=== PATIENT | male | born 1980 | race Caucasian/White ===

== ENCOUNTER 2018-11-19 05:08 | Day surgery (SDC) | payer OTHER ==
[~2018-11-19] VITALS: Ht 170.2 cm; Wt 95.3 kg
[2018-11-19 05:53] LABS: HEMOGLOBIN 14.4 g/dL (13.5-17.5); MCH 29.9 pg (26.0-34.0); MCHC 33.5 g/dL (31.0-37.0); MCV 89.2 fL (80.0-100.0); MEAN PLATELET VOLUME 11.1 fL (7.4-10.4); PLATELET COUNT 208 10x3/uL (130-400); RBC 4.82 10x6/uL (4.20-6.10); RDW 13.3 % (11.5-14.5); WBC 8.2 10x3/uL (4.8-10.8)
[2018-11-19 06:39] VITALS: BP 154/86; Ht 170.2 cm; Wt 95.3 kg
[2018-11-19] MEDS ORDERED: OMEPRAZOLE20 M1 PO (07:22)
[2018-11-19] MEDS ORDERED: IBUPROFEN600 MG PO (07:23)
[2018-11-19] MEDS ORDERED: ZOCOR20 MG PO (07:24)
[2018-11-19] MEDS ORDERED: ALPHAGAN P15 ML EACH EYE (07:24)
[2018-11-19 07:37] LABS: BASOPHILS 1 % (0-2); EOSINOPHILS 3 % (0-7); LYMPHOCYTES 31 % (15-50); MONOCYTES 12 % (2-11); NEUTROPHILS 47 % (40-80); PLATELET ESTIMATE NORMAL; ROULEAUX OCC
--- NOTE | 2018-11-19 13:53 | NUR ---
1320-PT. LEFT VIA WHEELCHAIR WITH 2 SKILLED NURSING GUARDS AT SIDE.
--- NOTE | 2018-11-19 18:53 | OP ---
PATIENT NAME: THA HILTON MEDICAL RECORD: [id number] :84 LOCATION:D.OPS ADMISSION DATE: SURGEON: CHRISTIAN PEDERSEN MD DATE OF OPERATION: 11/19/2018 PREOPERATIVE DIAGNOSES: 1. Symptomatic gallstones. 2. Symptomatic ventral hernia. POSTOPERATIVE DIAGNOSES: 1. Symptomatic gallstones. 2. Hepatomegaly. 3. Incarcerated symptomatic ventral hernia. PROCEDURES: 1. Laparoscopic cholecystectomy. 2. Intraoperative cholangiography without immediate surgeon interpretation. 3. An 18-gauge core needle liver biopsies. 4. Incarcerated ventral hernia repair without mesh. SURGEON: Christian Pedersen MD SPECIAL CLIENT BUS DRIVER: None. BLOOD LOSS: Minimal. ANESTHESIA: General. COMPLICATIONS: None. The risks, possible complications, and alternatives to the procedure were explained to the patient. He elects to proceed. The discussion specifically included, but was not limited to, bleeding requiring emergency reoperation, infection, bile duct injury as well as reherniation. OPERATIVE COURSE: The patient was conveyed to the operating room electively on 11/19/2018. General anesthesia was induced by the anesthesia staff. The abdomen was sterilely prepped and draped. An incision was accomplished within the umbilicus. Sharp dissection was carried down to the level of incarcerated fat. This was preperitoneal fat. It was excised with electrocautery. I then sharply cleaned overlying connective tissue from around the hernia defect. A 12-mm trocar was placed through the hernia defect. CO2 insufflation was begun. Once a sufficient pneumoperitoneum had been achieved, a 5-mm trocar was inserted in the left upper quadrant. Another 5-mm trocar was inserted in the epigastrium. Another 5-mm trocar was inserted far laterally in the right upper quadrant. During insertion of all trocars, there appeared to have been no injury to the bowels, any intraperitoneal or retroperitoneal structures. Under laparoscopic guidance, I percutaneously accessed the right upper quadrant utilizing an 18-gauge core needle liver biopsy device. Cores of the liver were obtained over its convexity. The biopsy sites were made hemostatic with the electrocautery. I then grasped the gallbladder. I advanced a cholangiogram trocar. I punctured the fundus of the gallbladder. I aspirated bile. I then injected dye. Under OPERATIVE REPORT [id number] THA HILTON real time fluoroscopy, static fluoroscopic images were obtained. These were cholangiographic images. They are sent to the radiologist for interpretation. Blunt dissection was begun in the triangle of [place]. One cystic artery and one cystic duct were identified. These were clipped multiply and divided between clips. The gallbladder was then excised from its bed in the liver. It was placed within a bag retrieval device and was withdrawn through the umbilical fascial defect. The 12-mm trocar was replaced and the abdomen reinsufflated. There was no bleeding even at low pressure of 8. I irrigated and aspirated. All the trocars were removed and the abdomen desufflated. Utilizing 0 Vicryl suture, I performed a szyt-akdz-pxfta type repair of the umbilical hernia. I then completed the herniorrhaphy with a horizontal mattress 0 Surgidac suture. The umbilical skin was approximated with interrupted 4-0 Vicryl Rapide sutures. The other skin incisions were closed with interrupted intracuticular 3-0 Vicryls. Benzoin and Steri-Strips were applied. The patient was then extubated and conveyed to the post-anesthesia care unit where he was in stable condition. He will be dismissed back to the shelter with [place] for pain. He is not to do any lifting or straining for 3 weeks. There is no need for him to follow up with me in the office unless he develops a complication related to this operative procedure. TRANSINT:[id number] Voice Confirmation ID: [id number] DOCUMENT ID: [id number] CC: Marbella Chow APN, not found. CHRISTIAN PEDERSEN MD at 1853 CC: DL ALMAZAN MD, CHRISTIAN ADAMS MD, LANIE VILLARREAL MD and [id number] L DICTATION DATE: 11/19/18 1105 PROCESSING INSPECTOR: 11/19/18 1117 [facility] 11/19/[address] [facility] [address] [place] [address]
--- NOTE | 2018-12-18 18:02 | HP ---
PATIENT: THA HILTNO MEDICAL RECORD: [id number] ACCOUNT: [id number] LOCATION:[facility] : 84 ADMISSION DATE: 11/19/18 PCP: No PCP HISTORY AND PHYSICAL EXAMINATION HISTORY OF PRESENT ILLNESS: The patient has symptomatic gallstones. He has been having abdominal pain, postprandial nausea. He also has a symptomatic ventral hernia. I am going to plan for laparoscopic cholecystectomy, intraoperative cholangiography, possible liver biopsy as well as a ventral hernia repair without mesh. The risks, possible complications and alternatives to the procedure were explained to the patient. He elects to proceed. The discussion specifically included, but was not limited to, bleeding requiring emergency reoperation, infection, intestinal injury as well as common bile duct injury and an open procedure. HOME MEDICINES: He is on eyedrops at the group home as well as naproxen, omeprazole, as well as simvastatin. PAST MEDICAL AND SURGICAL HISTORY: Gastroesophageal reflux, hypercholesterolemia, hypertension. ALLERGIES: No known drug allergies. PHYSICAL EXAMINATION: GENERAL: The patient does not appear acutely ill. VITAL SIGNS: Reviewed. HEAD: External ears appear normal. EYES: Extraocular movements are intact. NECK: Trachea is midline. CHEST: No intercostal retractions. PULMONARY: Nonlabored, no stridor. ABDOMEN: Nontender. EXTREMITIES: No peripheral cyanosis. INTEGUMENT: No rash, no ulcerations. IMPRESSION: 1. Symptomatic gallstones. 2. Symptomatic ventral hernia. PLAN: As described above. TRANSINT:[id number] Voice Confirmation ID: [id number] DOCUMENT ID: [id number] cc: Estrellita ARAUJON, not found HISTORY AND PHYSICAL [id number] THA HILTON ROBERT MD at 1802 CC: DL ALMAZAN MD, CHRISTIAN ADAMS MD, LANIE VILLARREAL MD and [id number] L DICTATION DATE: 12/17/18 1555 IT SALES EXECUTIVE: 12/17/18 1629 [facility] 11/19/18 [place] [id number]
== END 2018-11-19 13:20 | disposition home or self-care (01) ==
LOC: D.OPS 05:08 → D.PAN 08:00 → D.OPS 13:20
PROVIDERS: Anesthesiology
DX: K80.80 Other cholelithiasis without obstruction (principal); K43.6 Other and unspecified ventral hernia with obstruction, without gangrene; R16.0 Hepatomegaly, not elsewhere classified